=== PATIENT | female | born 1965 | race Caucasian/White ===

== ENCOUNTER 2016-09-18 05:43 | Day surgery (SDC) | payer OTHER ==
[~2016-09-18] VITALS: Ht 172.7 cm; Wt 146.4 kg
[~2016-09-18 05:43] MED LIST: ALPR0.5T8 PO; HYDR50TA3 PO; LEVO137T2 PO; POTA10TA7 PO
[2016-09-18] MEDS ORDERED: fentaNYL-PF 50 mCg/mL 2 mL Inj ONE (05:44)
[2016-09-18] MEDS: Lactated Ringer's 1,000 ML IV SCH ×3 (06:00→06:30)
[2016-09-18 06:28] VITALS: BP 141/79; PULSE 79; RESP 16; O2SAT 97
[2016-09-18] MEDS ORDERED: HYDROcodone-APAP 5-325 mg Tablet PO PRN (07:20)
--- NOTE | 2016-09-18 07:23 | PCM.HPANE ---
Patient Data Surgeon Admitting Provider: Attending Provider:Hugo Gorman DO Primary Care Physician:Anna Lawrence PA-C Other Provider:Ofelia Barba Anesthesia Reason for Visit Left Carpal Tunnel Syndrome Ht/WT & BMI Height (Feet): 5 Height (Inches): 8 Weight (Kilograms): 146.4 Body Mass Index 48.00 Allergies Coded Allergies: Penicillins (Verified Allergy, Unknown, rash, 09/12/16) oxycodone (Verified Allergy, Unknown, hallucinations, 09/12/16) valsartan (Verified Allergy, Unknown, dizziness, 09/12/16) venlafaxine (Verified Allergy, Unknown, heart palpitations, 09/12/16) Past Anesthesia History Anesthesia History: Denies:: Abnormal Airway, Anesthesia Reactions (woke up during ankle surgery), Difficult Intubation, Fam Anesthesia Reaction Diabetes History Hx Diabetes?: No MRSA MRSA: No Medications Hypertension Medication: Yes Home Meds Incl Beta Cynthia: No Reported Medications Levothyroxine 137 Mcg [id number] Mcg PO DAILY Ref 0 09/12/16 Potassium Chloride ER (Klor-Con 10)10 Meq [id number] Meq PO DAILY Ref 0 09/12/16 Hydrochlorothiazide 50 Mg [id number] Mg PO DAILY 30 Days Ref 0 09/12/16 Alprazolam 0.5 Mg Tablet0.5-1 Mg PO BID PRN For Anxiety Ref 0 09/12/16 History HEENT History: Positive for:: Sinus Problem (chronic ) Denies:: Abnormal Airway Cataracts Difficult Intubation Dysphagia Glaucoma Hearing Problem Denture Type: Full- Upper Other HEENT Pertinent History: recent sinusitis and conjunctivitis- Z pack stopped 09/10/16 Hx of Heart Problems?: Yes Cardiovascular History: Positive for:: Hypertension Irregular Heartbeat (PACs- work up in 2009) Denies:: AICD Coronary Artery Disease Edema Heart Murmur Pacemaker Peripheral Vascular Valvular Heart Disease (echo 2010- ef 60%) Hx of Respiratory Problem?: Yes Respiratory History: Positive for:: Cough (chronic cough, related to sinus drainage) Denies:: Asthma COPD Emphysema Oxygen Administration Pneumonia Tuberculosis Use of C-PAP Machine Use of Inhalers / NEBS Hx Neurologic Problems?: Yes Neurological History: Positive for:: Dizziness (occasional vertigo related to heart palpitations) Denies:: CVA Headaches Multiple Sclerosis Parkinson's Disease Seizures TIA Hx of GI Problems?: Yes Gastrointestinal History: Positive for:: Gastroesphageal Reflux Heartburn (over the counter rx, maybe once weekly) Denies:: Gall Bladder Disease Gastrointestinal Bleeding Hepatitis Hiatal Hernia Liver Disease Hx of Problems?: No Genitourinary History: Denies:: Kidney Stones Urinary Tract Infection Female Hx: Denies:: Currently Problems with Breasts? Skin History: Denies:: History Skin Disorders? Pressure Ulcers Hx Musculoskeletal Problems?: Yes Musculoskeletal History: Positive for:: Musculoskeletal Trauma (left carpal tunnel current admission problem) Denies:: Back Injury Fibromyalgia Joint Replacement Myasthenia Gravis Osteoarthritis Rheumatoid Arthritis Systemic Lupus Hx of Psycho/Social Problems?: Yes Psycho Social History: Positive for:: Anxiety Hx Depression Hx Surgeries?: Yes (ORIF ankle, C section) Hx Any Other Health Problems?: Yes Other History: Positive for:: Thyroid Disease (on meds) Denies:: Cancer History Blood Transfusions: Positive for:: Accept Blood Products? Denies:: Blood Transfusions Hx Diabetes: No Hx Alcohol Use: YesAlcoholic Drinks Per Day: 3 glasses wine weeklyHx Substance Use: NoHave You Smoked inLast 12 mo: No Stop/Bang S-Snoring: Do You Snore Loudly: No T-Tired: feel tired, fatigued: No O-Obsered: Observed not breath: No P-Blood Pressure: treated: Yes B- Body Mass Index > 35 kg/m2: Yes A- Age over 50: No N- Neck Large Circumference: Yes G- Gender Male: No YOUNG Total Score: 3 Risk Assessment Category Category 1A: Patient has history of documented sleep apnea, and HAS NOT received any narcotic, sedative or anesthesia administration during this stay. Category 1B: Patient has history of documented sleep apnea, and HAS received any narcotic , sedative or anesthesia administration during this stay Category 2: Patient has SUSPECTED Obstructive Sleep Apnea, and HAS received any narcotic , sedative or anesthesia administration during this stay. Category 3: Patient has SUSPECTED Obstructive Sleep Apnea and HAS NOT received narcotic, sedative or anesthesia administration during this stay. Category 4: Outpatient in Procedural Areas with known sleep apnea or who screen positive for High Risk via the STOP/BANG questionnaire. Exam Exam Vital Signs Vital Signs Date Time Temp Pulse Resp B/P Pulse Ox O2 Delivery O2 Flow Rate FiO2 09/18/16 06:28 36.7 79 16 141/79 97 Room Air General Appearance: Alert, Oriented X3, Cooperative, No Acute Distress HEENT/AIRWAY: MP 1 Lungs: Normal Air Movement Heart: Regular Rate/Rhythm Meds/Labs/Diagnostics Admission Meds Current Medications Lactated Ringer's (Lr) 1,000 ml @ 120 mls/hr [id number] IV Last administered on t 06:01; Start 09/18/16 at 05:00; Stop 09/18/16 at 13:19 Plan Impression Patient chart reviewed, patient interviewed and anesthestic plan with risks, benefits, and alternatives discussed, and informed consent obtained. NPO Status: 09/17/16 ASA Physical Status: ASA3 Severe Disease Anesthetic Plan: Regional Block Bene/Risks/Altern/Consents: Yes HP Complete Prior to Induction: Yes Gita Fernandez DO Sep 18, 2016 07:23
[2016-09-18] MEDS ORDERED: Lactated Ringer's 500 ML IV PRN (07:49)
[2016-09-18] MEDS ORDERED: Lactated Ringer's 1,000 ML IV SCH (07:49)
[2016-09-18] MEDS ORDERED: MetoCLOpramide 5 mg/mL 2 mL Inj IVPUSH PRN (07:50)
[2016-09-18] MEDS ORDERED: EPHEDrine Sulfate 50 mg/mL Inj IVPUSH PRN (07:50)
[2016-09-18] MEDS ORDERED: HYDROmorphone 1 mg/mL Inj IVPUSH PRN (07:50)
[2016-09-18] MEDS ORDERED: Ondansetron 2 mg/mL 2 mL Inj IVPUSH PRN (07:50)
[2016-09-18] MEDS ORDERED: fentaNYL-PF 50 mCg/mL 2 mL Inj IVPUSH PRN (07:50)
[2016-09-18] MEDS ORDERED: Phenylephrine 10,000 mCg/mL Inj IVPUSH PRN (07:50)
[2016-09-18] MEDS ORDERED: Lidocaine 1%-Epi 1:100,000 20 mL Inj INFILTRATE ONE (07:50)
[2016-09-18 07:55] VITALS: BP 140/70; PULSE 80; RESP 17; O2SAT 98
[2016-09-18 08:30] VITALS: BP 145/80; PULSE 78; RESP 17; O2SAT 98
--- NOTE | 2016-09-18 08:50 | PCM.ANEP2 ---
Post Anesthesia Evaluation ASA/CMS Post Anesthesia VS in Patient's Normal Range?: Yes Resp Stable; Airway Patent?: Yes CV Function & Hydration Stable: Yes Mental Status Recovered?: Yes Pain control Satisfactory?: Yes N/V Control Satisfactory?: Yes Gita Fernandez DO Sep 18, 2016 08:50
--- NOTE | 2016-09-18 08:50 | PCM.ANEP1 ---
Post Anesthesia Phase 1 PACU Phase 1 Assessment Vital Signs Vital Signs Date Time Temp Pulse Resp B/P Pulse Ox O2 Delivery O2 Flow Rate FiO2 09/18/16 06:28 36.7 79 16 141/79 97 Room Air Anesthetic Administered: Regional Block Level of Alertness: Awake, talking FRITZ's with Equal Strength: Yes Pain: No Nausea or Vomiting: No Oxygen Delivery: Room Air Lungs: Normal Air Movement Gita Fernandez DO Sep 18, 2016 08:50
--- NOTE | 2016-09-18 09:12 | OP ---
[address] [address] OPERATIVE REPORT PATIENT: SYDNEY MOREL : 1965 MR#: [id number] ADMIT: 09/18/2016 JOB ID: [id number] DATE OF SURGERY: 09/18/2016 PREOPERATIVE DIAGNOSIS(ES): Left carpal tunnel syndrome. POSTOPERATIVE DIAGNOSIS(ES): Left carpal tunnel syndrome. PROCEDURE: Left open carpal tunnel release. SURGEON: Hugo Gorman DO. ANESTHESIA: Dagmar block. BRIEF HISTORY: The patient is a pleasant 51-year-old female with a longstanding history of left hand pain and paresthesias. She failed nighttime bracing and demonstrated diagnostic findings of carpal tunnel syndrome. I discussed with the patient the risks, benefits and indications to proceed with a left open carpal tunnel release. She understood the risks included, but were not limited to, neurovascular injury, tendon injury, infection, failure to resolve the patient's preoperative symptoms, stiffness, persistent pain, all of which may require further intervention. The patient had all questions answered. Consent was signed and placed in the chart. PROCEDURE IN DETAIL: The patient was brought to the operative suite and placed supine on the operative table. Surgical time-out was performed. Everyone in the room was in agreement. After appropriate anesthesia was obtained, the left arm was then prepped and draped in a sterile fashion. A standard 2 cm longitudinal incision was made in line with the radial aspect of the ring finger and ulnar aspect of the palmaris longus. The incision was kept distal to the wrist crease and proximal to Foley cardinal line. Subcutaneous tissues were dissected with bipolar electrocautery utilized to maintain hemostasis throughout the procedure. The palmar fascia was first identified and incised longitudinally in line with the skin incision, followed by exposure of the underlying transverse carpal ligament. The transverse carpal ligament was then released in its entirety to include the distal extent of the antebrachial fascia. Copious irrigation was performed, followed by closure of the skin with 5-0 nylon in a simple interrupted fashion. The patient was then placed in a bulky sterile dressing. ESTIMATED BLOOD LOSS: Less than 1 cc. COMPLICATIONS: None. DISPOSITION: The patient tolerated the procedure well. Anesthesia was reversed. The patient was transferred back to recovery. POSTOPERATIVE PLAN: The patient will follow up in the office in two weeks. We will remove the patient's sutures at that time and have her start working on range of motion and scar mobilization.
== END 2016-09-18 23:59 | disposition home or self-care (01) ==
LOC: SAS 05:43
PROVIDERS: ATTEND Orthopaedic Surgery
DX: G56.02 Carpal tunnel syndrome, left upper limb (principal); I10 Essential (primary) hypertension; E03.9 Hypothyroidism, unspecified; R73.03 Prediabetes
CPT/HCPCS: 64721; J2250; J3010; J7120

== ENCOUNTER 2017-01-28 15:08 | Emergency (ER) | payer OTHER ==
[~2017-01-28] VITALS: Ht 172.7 cm; Wt 145.8 kg
[2017-01-28 15:08] VITALS: BP 154/86; PULSE 93; RESP 19; O2SAT 98
[2017-01-28 15:21] LABS: BASOPHILS % (AUTO) 0.3 % (0-3); MONOCYTES % (AUTO) 8.5 % (4-12); Mean Corpuscular Hemoglobin 24.9 pg (27.0-35.0); Mean Corpuscular Volume 80.4 fL (81-100); NEUTROPHILS % (AUTO) 56.9 % (40-74); Platelet Count 294 bil/L (150-400)
--- NOTE | 2017-01-28 15:30 | ED.REPORT ---
HPI-Chest Pain 40 and Over Date of Service Jan 28, 2017 ED Provider: Dr. Caesar Bonilla M.D. The patient is a 51 year old female with a medical history including borderline DM, anxiety, hypertension, hypothyroidism, and GERD who presents to the ED from Urgent Care with intermittent substernal chest pain onset one hour prior to arrival, while driving. The pain lasts for a couple of seconds at a time and is described as "cramping" in nature, with radiation to the right side of her chest. The patient denies shortness of breath, diaphoresis, or other symptoms. She began lifting weights recently. EMS found the patient with a BP of 153/90 and a pulse of 90. She was given ASA en route. The patient has never had similar symptoms in the past. Nursing Notes Stated Complaint: CHEST PAIN Chief Complaint: Chest Pain Nursing Notes Reviewed: Yes Allergies: Coded Allergies: Penicillins (Verified Allergy, Unknown, rash, 01/28/17) oxycodone (Verified Allergy, Unknown, hallucinations, 01/28/17) valsartan (Verified Allergy, Unknown, dizziness, 01/28/17) venlafaxine (Verified Allergy, Unknown, heart palpitations, 01/28/17) Scheduled Hydrochlorothiazide (Hydrochlorothiazide) 50 Mg Tablet 50 MG PO DAILY Levothyroxine (Levothyroxine) 137 Mcg Tablet 137 MCG PO DAILY Potassium Chloride ER (Klor-Con 10) 10 Meq Tablet 20 MEQ PO DAILY Scheduled PRN Alprazolam (Alprazolam) 0.5 Mg Tablet 0.5-1 MG PO BID PRN PRN For Anxiety General Time Seen by MD: 15:30 Chief Complaint Chest pain Hx Obtained From: Patient Arrived By: Walk-in Sudden in Onset?: Yes Onset Occurred: 1 - 4 hours ago Symptom Duration: Intermittent Location: : Chest right: Substernal Quality: Cramping, Painful Severity: Current: Moderate Severity: Maximum: Moderate Pertinent Negative: Relieved by nothing Context Related History: Reports: Anxiety disorder, Diabetes mellitus, GERD, Hypertension Recent Healthcare: Recent doctor visit Similar Sx Previous: No Risk Factors HEART Score HEART for MACE: Low index of susp (0), Normal ECG (0), Age 45 - 65 (1), 1-2 CAD risk factors (1), < or = to NL troponin (0) HEART for MACE Score: 0-3 (low risk 0.9%-1.7%) Past Medical History Past Medical History Anxiety Depression Obesity Borderline DM Hypertension Vitamin D deficiency Hypothyroid GERD Family History No family history of [place] Smoking History Former Smoker Ambulatory Status Independent Review of Systems Constitutional: Denies: Fever Respiratory: Denies: Non-productive cough, Shortness of breath Cardiovascular: Reports: Chest pain GI: Denies: Diarrhea, Vomiting Skin: Denies Diaphoresis Complete sys rev & neg: except as marked. Physical Exam Initial Vital Signs Vital Signs (First) Date Time Temp Pulse Resp B/P Pulse Ox O2 Delivery O2 Flow Rate FiO2 01/28/17 15:08 36.8 93 19 154/86 98 Room Air Initial VS: Reviewed Head / Eyes: Atraumatic, Normocephalic ENT: Conjunctiva normal, No scleral icterus Neck: Supple, Full range of motion Skin: Warm, Dry, No cyanosis Neurologic: Alert, Oriented, Nonfocal Psychiatric: Mood/affect normal, Behavior normal, Normal thought content General/Constitutional: Awake, Alert, No acute distress Respiratory / Chest: Breath sounds NL, Breath sounds = bilat, No respiratory distress Reproducible chest pain with palpation of right sternal border Cardiovascular: Heart rate NL, Regular rhythm, Heart sounds NL Interpretation & Diagnostics Lab Results Interpretation Result Diagram: 01/28/17 1518 01/28/17 1518 Test 01/28/17 15:14 01/28/17 15:18 Hold Purple Top Tube Received (Received) Hold Blue Top Tube Received (Received) Hold Red Top Tube Received (Received) Hold [place] Top Tube Received (Received) White Blood Count 7.5th/mm3 (3.8-10.1) Red Blood Count 4.70mil/mm3 (3.90-5.20) Hemoglobin 11.7g/dL (12.0-15.6) Hematocrit 37.8% (35.0-46.0) Mean Corpuscular Volume 80.4fL (81-100) Mean Corpuscular Hemoglobin 24.9pg (27.0-35.0) Mean Corpuscular Hemoglobin Concent 31.0% (32.0-37.0) Red Cell Distribution Width 17.0% (12.3-15.4) Platelet Count 294bil/L (150-400) Neutrophils (%) (Auto) 56.9% (40-74) Lymphocytes (%) (Auto) 30.0% (14-46) Monocytes (%) (Auto) 8.5% (4-12) Eosinophils (%) (Auto) 4.0% (0-5) Basophils (%) (Auto) 0.3% (0-3) Sodium Level 136mEq/L (134-144) Potassium Level 3.3mEq/L (3.5-5.2) Chloride Level 95mEq/L (97-108) Carbon Dioxide Level 26mmol/L (18-29) Blood Urea Nitrogen 13mg/dL (6-24) Creatinine 0.69mg/dL (0.57-1.00) Estimat Glomerular Filtration Rate 130mL/min (>59) Glucose Level 116mg/dL (60-99) Calcium Level 9.5mg/dL (8.5-10.1) Magnesium Level 2.1mg/dL (1.6-2.6) Total Bilirubin 0.3mg/dL (0.0-1.2) Aspartate Amino Transf (AST/SGOT) 31U/L (0-50) Alanine Aminotransferase (ALT/SGPT) 39U/L (0-32) Alkaline Phosphatase 83U/L (25-150) Troponin T < 0.010ug/L (0.0-0.011) Total Protein 8.1g/dL (6.4-8.4) Albumin 4.0g/dL (3.4-5.0) ECG Interpretation ECG Interpretation: Sinus rhythm rate 81 Probable left ventricular hypertrophy Time: 15:28 Interpreted by: ED physician X-Ray Chest Interpretation Chest Xray Interpretation: IMPRESSION: No acute cardiopulmonary disease process. Dictated by: Tatianna Flores MD, PhD on 01/28/2017 at 15:59 View: Portable, 1 view Interpretation / Wet Read by: Interpret - Radiologist Re-Eval/Medical Decision Time of Eval: 16:36 Patient Status: Condition improved Re-Evaluation/Progress Note: Discussed with patient x-ray and lab results, diagnosis, and plan for discharge. Follow-up and return to the ER instructions given. Patient agrees with plan for care and all questions were addressed. Counseled Regarding: Diagnosis, Lab results, Need for follow-up, When/why to return to ED Discharge & Departure Primary Impression: Non-cardiac chest pain Disposition: Home Discharge Condition All VS Reviewed: Yes Condition: Improved Patient Instructions: Costochondritis (ED) Additional Instructions: No dangerous cause for your pain is discovered today. I believe that your pain is related to the exercises you have been doing. If the pain persists for more than a few days or if it is worsened by exertion, I recommend immediate follow- up. Referrals: Anna Lawrence PA-C (PCP) Jammie Attestation Portions of this note were transcribed by Donna Starkey. I, Dr. Bonilla, personally performed the history, physical exam, and medical decision-making; I reviewed and confirmed the accuracy of the information in the transcribed note. Signed by: Jammie Torres, 01/28/2017, 16:50 copies to: Anna Lawrence PA-C, Kirk H MD Jan 28, 2017 15:30 DONNA STARKEY Jan 28, 2017 15:34
[2017-01-28 15:41] LABS: TROPONIN T < 0.010 ug/L (0.0-0.011)
[2017-01-28 15:50] LABS: Magnesium 2.1 mg/dL (1.6-2.6)
--- NOTE | 2017-01-28 16:01 | DRSVH ---
PROCEDURE: X-RAY CHEST ONE VIEW, PORTABLE ([id number]) INDICATIONS: cp TECHNIQUE: One view of the chest was acquired. COMPARISON: None. FINDINGS: Surgical changes and devices: None. Lungs and pleura: No pleural effusions or pneumothorax. Lungs are clear. Mediastinum: Mediastinal contours appear normal. Heart size is normal. Bones and chest wall: No suspicious bony lesions. Overlying soft tissues appear unremarkable. IMPRESSION: No acute cardiopulmonary disease process. Dictated by: Tatianna Flores MD, PhD on 01/28/2017 at 15:59 Approved by: Tatianna Flores MD, PhD on 01/28/2017 at 16:00
[2017-01-28 16:44] VITALS: BP 145/73; PULSE 88; RESP 17; O2SAT 96
[2017-01-28 16:45] VITALS: BP 145/73; PULSE 88; RESP 17; O2SAT 96
[2017-02-05] MEDS ORDERED: POTA10TA7 PO (15:49)
[2017-02-05] MEDS ORDERED: LEVO137T2 PO (15:49)
[2017-02-05] MEDS ORDERED: HYDR50TA3 PO (15:49)
[2017-02-05] MEDS ORDERED: ALPR0.5T8 PO (15:49)
== END 2017-01-28 16:46 | disposition home or self-care (01) ==
LOC: SED 15:08 → EDBD 15:08 → EDUNIT# 15:08 → SED 16:46
DX: R07.9 Chest pain, unspecified (principal); K21.9 Gastro-esophageal reflux disease without esophagitis; I10 Essential (primary) hypertension; E11.9 Type 2 diabetes mellitus without complications; Z87.891 Personal history of nicotine dependence; Z88.0 Allergy status to penicillin; Z88.5 Allergy status to narcotic agent
CPT/HCPCS: 36415; 71010; 80053; 83735; 84484; 85025; 93005; 99285; A4300; G0463

== ENCOUNTER 2017-02-10 05:58 | Day surgery (SDC) | payer OTHER ==
[~2017-02-10] VITALS: Ht 172.7 cm; Wt 143.6 kg
[~2017-02-10 05:58] MED LIST changes: +Lactated Ringer's 1,000 ML IV SCH
[2017-02-10] MEDS ORDERED: Propofol 10,000 mCg/mL 20 mL Inj ONE (05:59)
[2017-02-10] MEDS ORDERED: fentaNYL-PF 50 mCg/mL 2 mL Inj ONE (05:59)
[2017-02-10 06:36] VITALS: BP 145/68; PULSE 82; RESP 18; O2SAT 98
[2017-02-10] MEDS ORDERED: Lactated Ringer's 1,000 ML IV ONE (07:00)
[2017-02-10] MEDS ORDERED: HYDROcodone-APAP 7.5-325 mg Tablet PO PRN (07:20)
[2017-02-10] MEDS ORDERED: Lactated Ringer's 500 ML IV PRN (08:01)
[2017-02-10] MEDS ORDERED: Lactated Ringer's 1,000 ML IV SCH (08:01)
--- NOTE | 2017-02-10 08:01 | PCM.HPANE ---
Patient Data Date of Service: Feb 10, 2017 (0800) Surgeon Admitting Provider: Attending Provider:Hugo Gorman DO Primary Care Physician:Anna Lawrence PA-C Other Provider:Ofelia Barba Anesthesia Reason for Visit Right Carpal Tunnel Syndrome Ht/WT & BMI Height (Feet): 5 Height (Inches): 8.00 Weight (Kilograms): 143.600 Body Mass Index 47.00 Allergies Coded Allergies: Penicillins (Verified Allergy, Unknown, rash, 01/28/17) oxycodone (Verified Allergy, Unknown, hallucinations, 01/28/17) valsartan (Verified Allergy, Unknown, dizziness, 01/28/17) venlafaxine (Verified Allergy, Unknown, heart palpitations, 01/28/17) Past Anesthesia History Anesthesia History: Denies:: Abnormal Airway, Anesthesia Reactions (woke up during ankle surgery), Difficult Intubation, Fam Anesthesia Reaction Diabetes History Hx Diabetes?: No MRSA MRSA: No Medications Hypertension Medication: Yes Home Meds Incl Beta Cynthia: No Reported Medications Potassium Chloride ER (Klor-Con 10)10 Meq [id number] Meq PO DAILY Ref 0 02/05/17 Levothyroxine 137 Mcg [id number] Mcg PO DAILY Ref 0 02/05/17 Hydrochlorothiazide 50 Mg [id number] Mg PO DAILY 30 Days Ref 0 02/05/17 Alprazolam 0.5 Mg Tablet0.5-1 Mg PO BID PRN For Anxiety Ref 0 02/05/17 Discontinued Reported Medications Levothyroxine 137 Mcg [id number] Mcg PO DAILY Ref 0 09/12/16 Potassium Chloride ER (Klor-Con 10)10 Meq [id number] Meq PO DAILY Ref 0 09/12/16 Hydrochlorothiazide 50 Mg [id number] Mg PO DAILY 30 Days Ref 0 09/12/16 Alprazolam 0.5 Mg Tablet0.5-1 Mg PO BID PRN For Anxiety Ref 0 09/12/16 History History of ENT Problems?: No HEENT History: Positive for:: Sinus Problem (chronic ) Denies:: Abnormal Airway Cataracts Difficult Intubation Dysphagia Hearing Problem Denture Type: Full- Upper Teeth Condition: Within Normal Limits Hx of Heart Problems?: Yes Cardiovascular History: Positive for:: Chest Pain (ED admission 01/31- determined to be non cardiac) Hypertension Irregular Heartbeat (PACs- work up in 2009) Denies:: AICD Edema Heart Murmur Pacemaker Valvular Heart Disease (echo 2010- ef 60%) Hx of Respiratory Problem?: Yes Respiratory History: Positive for:: Cough (chronic cough, related to sinus drainage) Denies:: Asthma COPD Emphysema Oxygen Administration Pneumonia Tuberculosis Use of C-PAP Machine Hx Neurologic Problems?: Yes Neurological History: Positive for:: Dizziness (occasional vertigo related to heart palpitations) Denies:: CVA Headaches Multiple Sclerosis Parkinson's Disease Seizures Hx of GI Problems?: Yes Hx of Problems?: No Genitourinary History: Denies:: Kidney Stones Urinary Tract Infection Female Hx: Denies:: Currently Problems with Breasts? Skin History: Denies:: History Skin Disorders? Pressure Ulcers Hx Musculoskeletal Problems?: Yes Musculoskeletal History: Positive for:: Musculoskeletal Trauma (right carpal tunnel current admission problem) Denies:: Back Injury Joint Replacement Systemic Lupus Hx of Psycho/Social Problems?: Yes Psycho Social History: Positive for:: Anxiety Hx Depression Hx Surgeries?: Yes (ORIF ankle, C section, left carpal tunnel) Hx Any Other Health Problems?: Yes Other History: Positive for:: Thyroid Disease Denies:: Cancer History Blood Transfusions: Positive for:: Accept Blood Products? Denies:: Blood Transfusions Hx Diabetes: No Hx Alcohol Use: YesHx Substance Use: No Smoking Status: Former Smoker Have You Smoked inLast 12 mo: No Stop/Bang S-Snoring: Do You Snore Loudly: No T-Tired: feel tired, fatigued: No O-Obsered: Observed not breath: No P-Blood Pressure: treated: Yes B- Body Mass Index > 35 kg/m2: Yes A- Age over 50: No N- Neck Large Circumference: Yes G- Gender Male: No YOUNG Total Score: 3 YOUNG Risk Assessment: Low Risk, <3 Yes Risk Assessment Category Category 1A: Patient has history of documented sleep apnea, and HAS NOT received any narcotic, sedative or anesthesia administration during this stay. Category 1B: Patient has history of documented sleep apnea, and HAS received any narcotic , sedative or anesthesia administration during this stay Category 2: Patient has SUSPECTED Obstructive Sleep Apnea, and HAS received any narcotic , sedative or anesthesia administration during this stay. Category 3: Patient has SUSPECTED Obstructive Sleep Apnea and HAS NOT received narcotic, sedative or anesthesia administration during this stay. Category 4: Outpatient in Procedural Areas with known sleep apnea or who screen positive for High Risk via the STOP/BANG questionnaire. Exam Exam Vital Signs Vital Signs Date Time Temp Pulse Resp B/P Pulse Ox O2 Delivery O2 Flow Rate FiO2 02/10/17 06:36 36.6 82 18 145/68 98 Room Air General Appearance: Alert, Oriented X3, Cooperative HEENT/AIRWAY: MP 1 Heart: Exam Unremarkable Meds/Labs/Diagnostics Admission Meds Current Medications Lactated Ringer's (Lr) 1,000 ml @ ud STK-MED ONCE IV Last administered on 02/10t 07:00; Start 02/10/17 at 07:00; Stop 02/10/17 at 07:56; Status DC Plan Impression Patient chart reviewed, patient interviewed and anesthestic plan with risks, benefits, and alternatives discussed, and informed consent obtained. NPO per Anesth. Guidelines: Yes ASA Physical Status: ASA3 Severe Disease Anesthetic Plan: MAC, Regional Block (KULDEEP) Bene/Risks/Altern/Consents: Yes HP Complete Prior to Induction: Yes Lucas Cervantes MD Feb 10, 2017 08:01
[2017-02-10] MEDS ORDERED: Dexamethasone 4 mg/mL Inj IVPUSH PRN (08:05)
[2017-02-10] MEDS ORDERED: MetoCLOpramide 5 mg/mL 2 mL Inj IVPUSH PRN (08:05)
[2017-02-10] MEDS ORDERED: Ondansetron 2 mg/mL 2 mL Inj IVPUSH PRN (08:05)
[2017-02-10] MEDS ORDERED: EPHEDrine Sulfate 50 mg/mL Inj IVPUSH PRN (08:05)
[2017-02-10] MEDS ORDERED: Phenylephrine 10,000 mCg/mL Inj IVPUSH PRN (08:05)
[2017-02-10] MEDS ORDERED: Lidocaine 1%-Epi 1:100,000 20 mL Inj INFILTRATE ONE (08:26)
--- NOTE | 2017-02-10 08:38 | PCM.ANEP1 ---
Post Anesthesia PACU Phase 1 Assessment Date of Service: Feb 10, 2017 (0837) Vital Signs Vital Signs Date Time Temp Pulse Resp B/P Pulse Ox O2 Delivery O2 Flow Rate FiO2 02/10/17 06:36 36.6 82 18 145/68 98 Room Air Anesthetic Administered: MAC, Regional Block Level of Alertness: Awake, talking FRITZ's with Equal Strength: Yes Pain: No Pain Scale Score: 0 Nausea or Vomiting: No CV Function & Hydration Stable: Yes Airway Device: none Oxygen Delivery: Room Air Lungs: Clear to Auscultation Dermatome Level: Full Sensation Summary uneventful sedation and successful ervin block PACU Phase 2 Assessment Complications: No Follow up Care: No Patient Instructions Provided: N/A Lucas Cervantes MD Feb 10, 2017 08:38
[2017-02-10 08:40] VITALS: BP 110/60; PULSE 78; RESP 14; O2SAT 96
--- NOTE | 2017-02-10 09:21 | OP ---
[address] [address] OPERATIVE REPORT PATIENT: SYDNEY MOREL : 1965 MR#: [id number] ADMIT: 02/10/2017 JOB ID: [id number] DATE OF SURGERY: 02/10/2017 SURGEON: Hugo Gorman DO PREOPERATIVE DIAGNOSIS(ES): Right carpal tunnel syndrome. POSTOPERATIVE DIAGNOSIS(ES): Right carpal tunnel syndrome. PROCEDURE: Right open carpal tunnel release. BURNER SHAFT: Mariama Galeano, PGY-1 ANESTHESIA: [place] block. HISTORY: The patient is a pleasant 51-year-old female with bilateral hand pain and paresthesias. She had failed conservative treatment and originally underwent a left open carpal tunnel release. She had a long recovery, but eventually did well with the left side and opted to proceed. She had persistent symptoms on the right side with the same surgery. She was well aware of the risks, benefits, and indications as she has had the same procedure performed on the contralateral side. PROCEDURE IN DETAIL: The patient was brought to the operative suite and placed supine on the operating room table. Surgical time-out was performed where everyone in the room was in agreement. After appropriate anesthesia was obtained, the right arm was then prepped and draped in sterile fashion. A 2-cm longitudinal incision was made in line with the radial aspect of the ring finger and ulnar aspect of the palmaris longus. The incision was kept distal to the wrist crease and proximal to Foley cardinal line. Subcutaneous tissues were dissected with bipolar electrocautery utilized to maintain hemostasis throughout the procedure. The palmar fascia was first identified and incised longitudinally in line with the skin incision followed by exposure of the underlying transverse carpal ligament. The transverse carpal ligament was then released in its entirety to include the distal extent of the antebrachial fascia. Copious irrigation was performed followed by closure of the skin with 5-0 nylon in simple interrupted fashion. The patient was then placed in a bulky soft dressing. ESTIMATED BLOOD LOSS: Less than 1 cc. COMPLICATIONS: None. DISPOSITION: The patient tolerated the procedure well. Anesthesia was reversed. The patient was transferred back to recovery room. POSTOPERATIVE PLAN: The patient follow up in my office in two weeks. We will remove the patient's sutures at that time and have her start working on range of motion and scar mobilization. MTDD
== END 2017-02-10 23:59 | disposition home or self-care (01) ==
LOC: SAS 05:58
PROVIDERS: ATTEND Orthopaedic Surgery
DX: G56.01 Carpal tunnel syndrome, right upper limb (principal); I10 Essential (primary) hypertension; D50.9 Iron deficiency anemia, unspecified; E03.9 Hypothyroidism, unspecified; K21.9 Gastro-esophageal reflux disease without esophagitis; F33.9 Major depressive disorder, recurrent, unspecified; F41.9 Anxiety disorder, unspecified; E55.9 Vitamin D deficiency, unspecified; E66.9 Obesity, unspecified; Z68.42 Body mass index [BMI] 45.0-49.9, adult
CPT/HCPCS: 64721; J2250; J3010; J7120